=== PATIENT | male | born 1935 | race Caucasian/White ===

== ENCOUNTER 2018-08-28 18:00 | Observation (INO) ==
[2018-08-28] MEDS ORDERED: CALCIUM CHLORIDE 1 GM in NS 100 ML IV ONE (19:00)
[2018-08-28] MEDS ORDERED: GLUCAGON IV ONE (19:01)
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
[2018-08-28 19:28] LABS: BASO# 0.03 X1000 (0.0-0.2); BASO% 0.4 % (0.0-0.8); EOS% 2.9 % (0.0-10.0); HEMATOCRIT 39.8 % (42.0-52.0); HEMOGLOBIN 13.8 g/dL (14.0-18.0); IMM GRAN# 0.01 X1000 (0.0-0.04); IMM GRAN% 0.1 % (0.0-0.5); LYMPH# 1.89 X1000 (1.2-3.4); LYMPH% 27.1 % (20.5-51.1); MCH 30.9 PG (27-31); MCHC 34.7 g/dL (33-37); MCV 89.2 FL (81-99); MONO# 0.68 X1000 (0.11-0.59); MONO% 9.7 % (1.7-9.3); MPV 11.6 FL (7.4-10.4); NEUT# 4.17 X1000 (1.4-6.5); NEUT% 59.8 % (42.2-75.2); PLT 155 X1000 (130-400); RBC 4.46 XMIL (4.7-6.1); RDW 12.6 % (11.5-14.5); WBC 6.98 X1000 (4.8-10.8)
[2018-08-28] MEDS ORDERED: NS 100 ML ONE (19:33)
[2018-08-28 19:50] LABS: ALBUMIN 3.7 g/dL (3.5-5.0); CALCIUM 8.8 mg/dL (8.8-10.2); CREATININE 1.3 mg/dL (0.7-1.2); POTASSIUM 5.3 mmol/L (3.5-5.1); TOTAL BILIRUBIN 0.3 mg/dL (0.20-1.00); TOTAL PROTEIN 6.1 g/dL (6.3-8.3)
[2018-08-28] MEDS ORDERED: ZOFRAN IV ONE (20:38)
[2018-08-28] MEDS ORDERED: G.I. COCKTAIL PO ONE (21:06)
[2018-08-28] MEDS ORDERED: ZOFRAN IV PRN (21:37)
[2018-08-28] MEDS ORDERED: ATROPINE IV ONE (22:08)
[2018-08-28] MEDS ORDERED: ATROPINE ONE (22:09)
[2018-08-29] MEDS ORDERED: DOPAMINE 800 MG/D5W 800 MG/500 ML IV.SOLN IV SCH (01:30)
[2018-08-29] MEDS ORDERED: SODIUM CHLORIDE 0.9% INJ SCH (01:30)
[2018-08-29] MEDS: NS 1,000 ML IV SCH ×2 (03:03→18:14)
[2018-08-29] MEDS: PROTONIX IV SCH (03:17)
[2018-08-29] MEDS ORDERED: DOPAMINE 800 MG/D5W 800 MG/250 ML IV.SOLN IV SCH (04:00)
--- NOTE | 2018-08-29 05:41 | Diag Imaging Result Doc PS360 ---
EXAM: CHEST-PORTABLE HISTORY: chest pain TECHNIQUE: Portable chest, single view COMPARISON: 05/06/2018 FINDINGS: The lungs are well expanded. The heart is not enlarged. Sternal wires are present. The vessels are not distended. There are no infiltrates. No effusion identified. IMPRESSION: No acute abnormality. Electronically signed by Brandon Kwok 08/29/2018 5:38 AM
[2018-08-29] MEDS: TYLENOL PO PRN ×2 (06:13→21:49)
[2018-08-29] MEDS: ASPIRIN EC PO SCH (08:40)
[2018-08-29 08:46] LABS: AGAP 11; ALBUMIN 3.6 g/dL (3.5-5.0); ALKALINE PHOSPHATASE 80 U/L (32-122); BUN 25 mg/dL (8-22); CHLORIDE 101 mmol/L (98-107); COSMO 287; CREATININE 1.1 mg/dL (0.7-1.2); ESTIMATED GFR > 60; GLUCOSE 286 mg/dL (70-104); GOT 9 U/L (10-34); GPT 11 U/L (10-44); POTASSIUM 4.8 mmol/L (3.5-5.1); SODIUM 136 mmol/L (136-145); TCO2 25 mmol/L (25-35); TOTAL PROTEIN 5.9 g/dL (6.3-8.3)
--- NOTE | 2018-08-29 09:42 | HISTORY AND PHYSICAL ---
SUBJECTIVE: Mr. Burns is an 83-year-old who got admitted last night because of epigastric pain that he refers to be as heartburn. This was associated with one episode of vomiting. Upon presenting to the emergency department, the patient was evaluated, was given a GI cocktail, and his epigastric symptoms improved. However, in the ER, he was found to be bradycardic and it was decided that he needed to be observed overnight. This morning, he refers to feel a lot better. No chest pain. No heartburn. The daughter was at the bedside at the time of the encounter. OBJECTIVE: Vital Signs: Blood pressure is currently 125/63, pulse is 44 at this time, respirations are 15, temperature is 97.9 degrees, the patient was saturating about 94%. General Examination: Mr. Burns is an 83-year-old, male. He is in bed. He is not in any cardiopulmonary distress. HEENT: Mucosa is pink, slightly dry. Anicteric. Acyanotic. Neck: Supple. Chest: Good air entry bilateral. There were no crepitations. No rhonchi. Cardiovascular: Slightly bradycardic but no murmurs, no rubs, no gallops. Abdomen: Soft. Distended but nontender. Bowel sounds present. Extremities: No pedal edema. Distal pulses present. Musculoskeletal: There is an old sternotomy scar on the anterior chest wall. LABORATORY DATA: Chemistry this morning, sodium is 136, potassium is down to 4.8, chloride is 101, creatinine has normalized to 1.3. Troponins have been done 3 times. They are all below normal range. A chest x-ray yesterday showed no acute abnormality. EKG tracing, there was one EKG done yesterday at 1819 which showed junctional rhythm with a rate of 40. A repeat was done early this morning at 1:28. Continued to show junctional rhythm with a rate down to 32. Currently, patient's telemetry tracing is showing sinus bradycardia with a rate of about 44. The patient is completely asymptomatic. MEDICATIONS: Review of home medications indicated that the patient was on metoprolol 50 mg and losartan 25, and other medications. REVIEW OF PREVIOUS DATA: An echocardiogram was done in May of last year which showed an ejection fraction of 65 to 70 percent, no wall motion abnormality, and the valves seem to be unremarkable. A left heart catheterization was done also in May of last year which showed severe three-vessel coronary artery disease, severe stenosis of the left main coronary artery, the LAD, and the circumflex. The right coronary appears to be occluded. The patient at that time was recommended medical management. ASSESSMENT: 1. Epigastric discomfort on presentation which is presumed to be gastroesophageal reflux disease. This has significantly improved with the gastrointestinal cocktail and proton pump inhibitor. The patient's troponins have been 3 times negative. Electrocardiogram does not show any ST- segment or T-wave abnormality so myocardial infarction has been ruled out. This morning, Mr. Burns is clinically stable. We are going to continue with his home medications except for the blood pressure and the beta nan medication. 2. Asymptomatic bradycardia. Initially, this was junctional rhythm. Currently, the patient is in sinus rhythm with a rate of about 44. I am told that whenever he gets up, it goes up into the 50s. I think this is medication-induced, presumably the beta nan. This has been discontinued. We will observe the patient in the hospital. We will observe him until midday. If he continues to be asymptomatic, I think it will be okay to discharge him. 3. Hypotension on presentation, resolved. We think this is also medication-induced. Losartan has been withheld as well as beta nan has been withheld. 4. Clinical volume depletion. The patient continues to be slightly on the dry side. Creatinine has improved. We will continue with the gentle hydration and re-evaluate him later today. 5. History of severe coronary artery disease, status post coronary artery bypass graft. A recent left heart left heart catheterization still shows three vessel disease. The patient has been advised only medical management at this point from his previous hospitalization. Currently, he does not seem to have any ongoing acute coronary syndrome. 6. Diabetes mellitus. We will continue with insulin regimen for now. 7. Hearing impairment, noted. 8. Age-related cognitive decline versus early dementia. The patient has been advised to allow family members to be monitoring his current medications. The fear is that he might have taken maybe a little too much of his blood pressure or his beta nan, and that could have made his vitals this abnormal. The patient voiced understanding. PLAN: In general, I think Mr. Burns is doing okay. We are going to continue with the gentle hydration. We will discontinue the dopamine since his blood pressures have been fine. We will feed him this morning and this afternoon, encourage the staff to walk him around this afternoon. If he continues to be okay, we will be able to discharge him this afternoon. cc: Cole Ojeda MD
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
[2018-08-29] MEDS ORDERED: LIPITOR PO SCH (21:00)
[2018-08-30] MEDS: PROTONIX IV SCH (02:23)
[2018-08-30 06:55] LABS: BASO# 0.02 X1000 (0.0-0.2); BASO% 0.3 % (0.0-0.8); EOS% 3.2 % (0.0-10.0); HEMATOCRIT 39.8 % (42.0-52.0); HEMOGLOBIN 13.5 g/dL (14.0-18.0); IMM GRAN# 0.01 X1000 (0.0-0.04); IMM GRAN% 0.2 % (0.0-0.5); LYMPH# 1.21 X1000 (1.2-3.4); LYMPH% 19.3 % (20.5-51.1); MCH 30.4 PG (27-31); MCHC 33.9 g/dL (33-37); MCV 89.6 FL (81-99); MONO# 0.72 X1000 (0.11-0.59); MONO% 11.5 % (1.7-9.3); MPV 11.5 FL (7.4-10.4); NEUT# 4.11 X1000 (1.4-6.5); NEUT% 65.5 % (42.2-75.2); PLT 127 X1000 (130-400); RBC 4.44 XMIL (4.7-6.1); RDW 12.7 % (11.5-14.5); WBC 6.27 X1000 (4.8-10.8)
[2018-08-30 07:15] LABS: AGAP 10; BUN 20 mg/dL (8-22); CALCIUM 8.5 mg/dL (8.8-10.2); CHLORIDE 102 mmol/L (98-107); COSMO 283; ESTIMATED GFR > 60; GLUCOSE 210 mg/dL (70-104); POTASSIUM 4.4 mmol/L (3.5-5.1); SODIUM 137 mmol/L (136-145); TCO2 25 mmol/L (25-35)
[2018-08-30] MEDS: NS 1,000 ML IV SCH (07:40)
--- NOTE | 2018-08-30 08:43 | EKG Report ---
Test Performed on : 08/29/2018 01:28:41 AM Test Reason : drop in heart rate Blood Pressure : / mmHG Vent. Rate : 032 BPM Atrial Rate : 021 BPM P-R Int : 000 ms QRS Dur : 096 ms QT Int : 488 ms P-R-T Axes : 000 008 068 degrees QTc Int : 356 ms Junctional bradycardia. Cannot rule out Anterior infarct , age undetermined Abnormal ECG When compared with ECG of 28-AUG-2018 18:19, (Unconfirmed) Nonspecific T wave abnormality, worse in Lateral leads Unconfirmed Result
--- NOTE | 2018-08-30 09:17 | EKG Report ---
Test Performed on : 08/28/2018 6:19:29 PM Test Reason : ER Blood Pressure : / mmHG Vent. Rate : 040 BPM Atrial Rate : 045 BPM P-R Int : 000 ms QRS Dur : 090 ms QT Int : 462 ms P-R-T Axes : 000 010 067 degrees QTc Int : 376 ms Junctional bradycardia. Nonspecific ST and T wave abnormality Abnormal ECG When compared with ECG of 07-MAY-2018 15:26, Junctional rhythm. has replaced Sinus rhythm. T wave inversion no longer evident in Anterolateral leads QT has shortened Unconfirmed Result
[2018-08-30] MEDS: ASPIRIN EC PO SCH (09:23)
[2018-08-30 11:21] VITALS: BP 186/88
--- NOTE | 2018-08-30 15:54 | DISCHARGE SUMMARY ---
ADMISSION DATE: 08/28/2018 DISCHARGE DATE: 08/30/2018 ADMISSION DIAGNOSES: 1. Epigastric pain. 2. Asymptomatic bradycardia. 3. Hypotension. 4. Volume depletion. 5. Coronary artery disease. 6. Diabetes mellitus requiring insulin. 7. Hearing impairment. 8. Age related cognitive decline versus early dementia. DISCHARGE DIAGNOSES: 1. Epigastric discomfort, resolved. 2. Asymptomatic bradycardia, resolved. 3. Hypotension, resolved. 4. Clinical volume depletion, resolved. 5. History of coronary artery disease. 6. Diabetes mellitus requiring insulin. 7. Hearing impairment. 8. Age related cognitive decline versus early dementia. CONSULTATIONS: None. DIAGNOSTIC PROCEDURES AND FINDINGS: EKG 08/28/2018 with junctional bradycardia with nonspecific ST changes. Chest x-ray 08/29/2018 with no acute abnormality. HOSPITAL COURSE: Mr. Burns is an 83-year-old male with a history of CAD who presented to [facility] ER with three to four days of epigastric discomfort that he felt was more heartburn in nature. When he arrived to the ER his heart rate was noted to be in the 30s. His subsequent EKG revealed a junctional bradycardia that was felt to be overall asymptomatic. After discussing with the patient for quite some time, we learned that he has been taking his 's Cardizem twice a day because he felt that this was needed for epigastric pain or heartburn. There was clearly some confusion about what he should be taking and the effects of the medication that he was taking from his 's prescription. He was admitted to the ICU for close observation. Cardiac enzymes were done x4 sets and were all found to be negative. His heart rate returned to normal and is currently in the 70s and he has no pain at this time. We discussed with his and himself the importance of not taking medication not prescribed and that he should follow up with his PCP regarding any type of discomfort for proper management. His vital signs are currently stable and he is now ready for discharge home. DISCHARGE MEDICATIONS: Atorvastatin 80 mg at bedtime, Glucophage 500 mg p.o. b.i.d., aspirin 81 mg daily, Cozaar 25 mg daily, omeprazole 40 mg p.o. b.i.d. We have stopped his metoprolol XL 50 mg daily. DISCHARGE PHYSICAL EXAM: General: This is an elderly, somewhat disheveled and unkempt appearing 83-year-old male lying in a hospital bed in no acute distress. Neurologic: He is hard of hearing but he is overall awake and alert. He follows commands without focal deficits. HEENT: Head is atraumatic and normocephalic. Pupils are equal, round, and reactive to light. Mucus membranes pink and moist. Neck: Supple. Trachea is midline. There is no JVD. Chest: Clear to auscultation bilaterally. CV: Regular rate and rhythm. S1, S2 is noted. No murmur. GI: Soft. Nondistended. Nontender. Bowel sounds are active. Extremities: No edema. Pulses present. DISCHARGE LAB DATA: WBC 6.27, hemoglobin 13.5, hematocrit 39.8, platelet count 127. Sodium 137, potassium 4.4, chloride 102, CO2 25, anion gap 10, BUN 20, creatinine 1, glucose 210, calcium 8.5. Cardiac enzymes negative x4 sets. DISCHARGE DIET: Diabetic, heart healthy. DISCHARGE ACTIVITY: Resume activity as tolerated. DISPOSITION AND OTHER DISCHARGE INSTRUCTIONS: The patient has been discharged home to self care. He is to follow up with Dr. Proctor within the next one to two weeks and his playground director, Dr. Acevedo, within the next one to two weeks. We have asked him to stop his metoprolol and certainly not to take any Cardizem or any other prescription medications that are not prescribed to him. He and his both verbalized understanding. We have asked them to return to the ER or call 911 for any complaints or concerns. All questions answered. Discharge time greater than 35 minutes. Dictated by RAQUEL Pena for Jeovany Lopez MD cc: RAQUEL Pena MD John V. Irle, MD William D. Denney, MD
--- NOTE | 2018-08-31 10:09 | DISCHARGE SUMMARY ---
ADMISSION DATE: 08/28/2018 DISCHARGE DATE: 08/30/2018 DISCHARGE DIAGNOSIS: 1. Hypotension, resolved. 2. Bradycardia secondary to medication use, resolved. 3. Epigastric discomfort, improved. 4. Severe coronary artery disease status post coronary bypass grafting, stable. 5. Diabetes. CONSULTATIONS: None. PROCEDURES: None. BRIEF HOSPITAL COURSE: The patient is an 83-year-old male, who presented to the hospital bradycardic. He was essentially asymptomatic. After discussion with the family, it became evident that he was taking his 's Cardizem because he thought that it was for heartburn. Unfortunately, that is not for heartburn, and it dropped his heart rate into the 40s. He was admitted, placed in the ICU overnight. He had an uneventful hospital course. On discharge, he is awake, alert. He is in no distress. His heart rate in the 70s and 80s. DISPOSITION: The patient will be discharged home. DISCHARGE INSTRUCTIONS: He will not start taking his Toprol again until he follows up with his primary care. The staff did review this with his daughter and discussed with her that certainly should consider helping him with his medications. COORDINATION TIME: Greater than 30 minutes spent in total care. cc: Jeovany Lopez MD
== END 2018-08-30 11:34 | disposition home or self-care (01) ==
LOC: P.MEDSURG 18:00 → P.ED 18:00 → SUATTDRO 18:01 → P.ICU 08-29 01:48
PROVIDERS: ATTEND Family Medicine
CPT/HCPCS: 71010; 71045; 80048; 80053; 82550; 83880; 84443; 84484; 85025; 93005; 96365; 96375; 99285; A9270; C9113; J0461; J1265; J1610; J2405; J7030; S0164

== ENCOUNTER 2019-05-31 08:01 | Inpatient (IN) ==
[2019-05-31] MEDS ORDERED: NS 1,000 ML ONE (08:17)
[2019-05-31] MEDS ORDERED: ASPIRIN PO ONE (08:19)
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
[2019-05-31 08:46] LABS: BASO# 0.03 X1000 (0.0-0.2); BASO% 0.3 % (0.0-0.8); EOS# 0.14 X1000 (0.0-0.7); HEMOGLOBIN 15.5 g/dL (14.0-18.0); PLT 217 X1000 (130-400)
[2019-05-31] MEDS ORDERED: ASPIRIN ONE (08:49)
[2019-05-31 08:50] LABS: EOS% 1.6 % (0.0-10.0); HEMATOCRIT 46.4 % (42.0-52.0); LYMPH# 2.66 X1000 (1.2-3.4); LYMPH% 29.9 % (20.5-51.1); MCH 30.3 PG (27-31); MCHC 33.4 g/dL (33-37); MCV 90.8 FL (81-99); MONO# 0.24 X1000 (0.11-0.59); MONO% 2.7 % (1.7-9.3); MPV 11.5 FL (7.4-10.4); NEUT# 5.82 X1000 (1.4-6.5); NEUT% 65.5 % (42.2-75.2); RBC 5.11 XMIL (4.7-6.1); RDW 13.3 % (11.5-14.5); WBC 8.89 X1000 (4.8-10.8)
--- NOTE | 2019-05-31 08:50 | EKG Report ---
Test Performed on : 05/31/2019 08:22:09 AM Test Reason : CP Blood Pressure : / mmHG Vent. Rate : 126 BPM Atrial Rate : 126 BPM P-R Int : 192 ms QRS Dur : 078 ms QT Int : 286 ms P-R-T Axes : 048 009 052 degrees QTc Int : 414 ms Sinus tachycardia. Possible Left atrial enlargement Nonspecific ST abnormality Abnormal ECG No previous ECGs available Unconfirmed Result
[2019-05-31 08:55] LABS: INR 1.04; PROTIME 13.7 Seconds (11.0-16.0)
[2019-05-31 08:56] LABS: PTT 23.7 Seconds (22.3-41.8)
[2019-05-31 09:10] LABS: ALB/GLOB RATIO 1.9; ALBUMIN 4.3 g/dL (3.5-5.0); CALCIUM 9.4 mg/dL (8.8-10.2); CREATININE 1.4 mg/dL (0.7-1.2); POTASSIUM 4.5 mmol/L (3.5-5.1); TOTAL BILIRUBIN 0.49 mg/dL (0.20-1.00); TOTAL PROTEIN 6.6 g/dL (6.3-8.3)
--- NOTE | 2019-05-31 09:20 | Diag Imaging Result Doc PS360 ---
EXAM: CHEST-1 VIEW HISTORY: POSSIBLE SEPSIS TECHNIQUE: Single view COMPARISON: 08/29/2018 FINDINGS: The lungs are well expanded. There are infiltrates in the mid and lower right lung on the current exam. No cardiomegaly. The sternal wires and surgical clips. No pleural effusions identified. IMPRESSION: Right-sided pneumonia. Follow-up PA and lateral recommended. Electronically signed by Brandon Kwok 05/31/2019 9:17 AM
[2019-05-31] MEDS ORDERED: NS 500 ML IV ONE (09:31)
[2019-05-31] MEDS ORDERED: NS 1,000 ML IV ONE (09:31)
[2019-05-31] MEDS ORDERED: MAXIPIME 2 GM in NS 100 ML IV ONE (09:31)
[2019-05-31] MEDS ORDERED: VANCOMYCIN 1 GM/NS 1 GM/250 ML IVPB IV ONE (09:31)
[2019-05-31] MEDS ORDERED: VANCOMYCIN IV PER PHARMACY MISC SCH (10:00)
[2019-05-31] MEDS: ASPIRIN EC PO SCH (10:00)
[2019-05-31] MEDS: XOPENEX NEB INH SCH ×3 (10:46→22:10)
[2019-05-31] MEDS: ATROVENT NEB INH SCH ×3 (10:47→22:10)
[2019-05-31] MEDS: HUMULIN R SUBQ SCH ×3 (11:18→20:39)
[2019-05-31] MEDS ORDERED: VANCOMYCIN 1.8 GM in NS 250 ML IV ONE (12:00)
[2019-05-31] MEDS: FLOMAX PO SCH ×2 (12:05→22:08)
--- NOTE | 2019-05-31 12:12 | HISTORY AND PHYSICAL ---
Addendum to history and physical dictated by Nurse Practitioner and I agree with most components of history, physical, assessment and plan. BRIEF SUMMARY: In brief, Mr. Burns is an 83-year-old man with past medical history of essential hypertension, mee-eeirkbh-ozqpyammj diabetes mellitus, myocardial infarction requiring CABG in year 2009, history of cholecystectomy. No history of COPD, who comes in with chief complaints of shortness of breath, chills, feeling cold and 2 to 3 episodes of vomiting since about 8 hours prior to current presentation. The patient was in his usual state of health yesterday, and he uses a walker to walk; however, suddenly, this morning at about 3 a.m., he started feeling really cold and was chilly. He also had episodes of vomiting so he decided to come to the hospital. In the hospital, he was found to have sepsis and acute hypoxic respiratory failure with lactic acidosis, so the hospitalist team was consulted for further management. His temperature was 99.9 degrees, pulse was 117. He was saturating 92% on room air. At the time of my evaluation he is complaining of dry cough, some chest discomfort which has resolved but initially was going across the chest. His family members are currently at bedside. VITAL SIGNS: Temperature of 99.9 degrees, pulse 102, respiratory rate 20, blood pressure 150/77. He is saturating 99% on 2 L nasal cannula. PHYSICAL EXAMINATION: GENERAL: He is not in acute distress except tachypneic. Oral cavity is dry. RESPIRATORY: He has significantly decreased air entry with inspiratory crackles in the right inframammary and infrascapular region. Adequate air entry without wheeze, rhonchi or crackles on left lung. CARDIOVASCULAR: S1, S2 normal. Tachycardic. No murmur, rub, or gallop. ABDOMEN: Soft. Mild tenderness in right lower quadrant. Hypoactive bowel sounds. EXTREMITIES: He does not have any lower extremity edema. He has adequate dorsalis pedis pulses bilaterally. 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 LABORATORY DATA: Suggestive of no leukocytosis. Normal hemoglobin, normal platelet count, hyponatremia, hypochloremia, chronic kidney disease stage 3, lactic acidosis. Microbiology: Blood cultures have been collected. IMAGING: Chest x-ray suggest a multifocal pneumonia affecting the right lung. ASSESSMENT AND PLAN: 1. Sepsis and acute hypoxic respiratory failure due to multifocal right lung pneumonia. I will follow up with urine antigens, blood culture results, sputum culture and start him on broad- spectrum antibiotics, intravenous vancomycin and cefepime. He was given 1.5 L of IV fluids according to nursing report. I will keep him on intravenous fluids, keep him on oxygen to maintain saturation more than 92%, and follow up with serial lactate. 2. Vomiting. He according to reports takes multiple pain medications for arthritis including Goody Powder, an xgzi-wyb-iqrpuxr medication which can cause acute gastritis. He also has right upper quadrant abdominal pain with prior history of cholecystectomy and history of constipation. I will get x-ray of the abdomen to rule out constipation. I will hold NSAID medication and start him on his home proton pump inhibitors orally b.i.d. 3. History of coronary artery disease with myocardial infarction and CABG in year around 2009. His 1st troponin was negative. EKG only had sinus tachycardia. He was given aspirin 325 mg. I will keep him on his home aspirin and atorvastatin and follow-up repeat EKG . 4. History of fia-rcmkocg-bsdavlgim diabetes mellitus with hyperglycemia on presentation. I will keep him on sliding scale insulin. I will resume his home glimepiride and follow up hemoglobin A1c next. DISPOSITION: I will continue to monitor patient inside the telemetry unit. Plan of care extensively discussed with the patient and his at bedside and son. All of their questions have been answered. cc: Woody Paige MD
[2019-05-31] MEDS: NS 1,000 ML IV SCH ×2 (12:13→20:39)
[2019-05-31] MEDS: CARAFATE LIQUID PO SCH ×3 (12:13→20:37)
--- NOTE | 2019-05-31 12:59 | Diag Imaging Result Doc PS360 ---
EXAM: ABDOMEN FLAT/UPRIGHT 05/31/2019 HISTORY: abdominal pain. Rule out constipation TECHNIQUE: Flat and upright abdomen COMMENT: There is some stool in the colon. There is no evidence of bowel dilatation organomegaly or mass. There are numerous phleboliths in the pelvis. There are degenerative disc changes in the lumbar spine particularly at the L3-4 and L4-5 levels. IMPRESSION: The possibility of a mild degree of constipation particularly in the right colon cannot be excluded. Otherwise the appearance of the abdomen is nonspecific. Electronically signed by Robel Cano 05/31/2019 12:56 PM
--- NOTE | 2019-05-31 13:04 | EKG Report ---
Test Performed on : 05/31/2019 12:54:59 PM Test Reason : Follow up EKG Blood Pressure : / mmHG Vent. Rate : 098 BPM Atrial Rate : 098 BPM P-R Int : 216 ms QRS Dur : 094 ms QT Int : 348 ms P-R-T Axes : 033 -07 085 degrees QTc Int : 444 ms Sinus rhythm. with 1st degree AV block. T wave abnormality, consider lateral ischemia Abnormal ECG When compared with ECG of 31-MAY-2019 08:22, (Unconfirmed) T wave inversion now evident in Lateral leads Confirmed by Carlos SOSA, [place] ([id number]) on 05/31/2019 4:57:12 PM
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
[2019-05-31] MEDS: AMARYL PO SCH (20:38)
[2019-05-31] MEDS: LIPITOR PO SCH (20:38)
[2019-05-31] MEDS: PROTONIX IV SCH (20:38)
[2019-05-31] MEDS: MAXIPIME 1 GM in NS 50 ML IV SCH ×2 (20:38→22:08)
[2019-05-31] MEDS: MUCINEX PO SCH (20:38)
[2019-05-31] MEDS: TYLENOL PO PRN (20:38)
[2019-05-31] MEDS ORDERED: PRILOSEC PO SCH (21:00)
[2019-05-31 21:01] LABS: URINE SOURCE CATH
[2019-05-31 21:05] LABS: BILIRUBIN URINE NEGATIVE (NEGATIVE); BLOOD URINE NEGATIVE (NEGATIVE); COLOR YELLOW; GLUCOSE URINE 500 mg/dL (NEGATIVE); KETONE URINE 20 mg/dL (NEGATIVE); LEUKOCYTES URINE NEGATIVE (NEGATIVE); NITRITE URINE NEGATIVE (NEGATIVE); PROTEIN URINE NEGATIVE (NEGATIVE); SP GRAVITY URINE 1.014; TURBIDITY URINE CLEAR (CLEAR); UROBILINOGEN URINE NORMAL (NORMAL)
[2019-05-31 21:06] LABS: UR EPITHELIAL CELLS <10 /HPF (<10); URINE BACTERIA NEGATIVE /HPF; URINE RBC <10 /HPF (<10); URINE WBC <10 /HPF (<10)
[2019-06-01] MEDS: CARAFATE LIQUID PO SCH ×4 (02:01→19:55)
[2019-06-01] MEDS: ATROVENT NEB INH SCH ×4 (03:49→21:12)
[2019-06-01] MEDS: XOPENEX NEB INH SCH ×4 (03:49→21:12)
[2019-06-01 05:58] LABS: BASO# 0.03 X1000 (0.0-0.2); BASO% 0.3 % (0.0-0.8); EOS# 0.07 X1000 (0.0-0.7); EOS% 0.6 % (0.0-10.0); HEMATOCRIT 37.9 % (42.0-52.0); HEMOGLOBIN 12.3 g/dL (14.0-18.0); IMM GRAN# 0.03 X1000 (0.0-0.04); IMM GRAN% 0.3 % (0.0-0.5); LYMPH# 1.49 X1000 (1.2-3.4); LYMPH% 12.6 % (20.5-51.1); MCHC 32.5 g/dL (33-37); MCV 92.4 FL (81-99); MONO# 0.63 X1000 (0.11-0.59); MONO% 5.3 % (1.7-9.3); MPV 11.1 FL (7.4-10.4); NEUT# 9.53 X1000 (1.4-6.5); NEUT% 80.9 % (42.2-75.2); PLT 131 X1000 (130-400); RDW 13.4 % (11.5-14.5); WBC 11.78 X1000 (4.8-10.8)
[2019-06-01 06:16] LABS: ALB/GLOB RATIO 1.2; ALBUMIN 2.9 g/dL (3.5-5.0); CREATININE 1.2 mg/dL (0.7-1.2); POTASSIUM 4.2 mmol/L (3.5-5.1); TOTAL BILIRUBIN 0.55 mg/dL (0.20-1.00); TOTAL PROTEIN 5.4 g/dL (6.3-8.3)
[2019-06-01] MEDS: HUMULIN R SUBQ SCH ×4 (06:39→20:59)
[2019-06-01] MEDS: FLOMAX PO SCH ×2 (08:16→20:04)
[2019-06-01] MEDS: ASPIRIN EC PO SCH (08:17)
[2019-06-01] MEDS: MUCINEX PO SCH ×2 (08:17→20:04)
[2019-06-01] MEDS: PROTONIX IV SCH ×2 (08:17→20:04)
[2019-06-01] MEDS: AMARYL PO SCH ×2 (08:17→20:04)
[2019-06-01] MEDS: SODIUM CHLORIDE 0.9% INJ SCH ×2 (08:17→20:04)
[2019-06-01] MEDS ORDERED: COZAAR PO SCH (09:00)
--- NOTE | 2019-06-01 09:34 | Diag Imaging Result Doc PS360 ---
EXAM: CHEST-2 VIEWS HISTORY: Pneumonia TECHNIQUE: Two views COMPARISON: 03/31/2019 FINDINGS: Right-sided infiltrates are less prominent on the current exam. The lungs are well expanded. Sternal wires are present. Heart is borderline mildly prominent. Tiny pleural effusions. IMPRESSION: Interval improvement in the right-sided pneumonia Electronically signed by Brandon Kwok 06/01/2019 9:32 AM
[2019-06-01] MEDS: MAXIPIME 1 GM in NS 50 ML IV SCH ×2 (09:48→20:59)
[2019-06-01] MEDS: MIRALAX PO SCH ×3 (09:55→20:05)
[2019-06-01] MEDS: COZAAR PO SCH (09:55)
[2019-06-01] MEDS: DULCOLAX PR SCH ×3 (09:55→20:04)
--- NOTE | 2019-06-01 10:49 | PROGRESS NOTE ---
DATE: 06/01/2019 INTERVAL HISTORY: No acute events overnight Mr. Burns subjectively is feeling better. His lactic acidosis was resolving yesterday after intravenous fluid resuscitation. cc: Woody Paige MD
--- NOTE | 2019-06-01 11:23 | PROGRESS NOTE ---
DATE: 06/01/2019 SUBJECTIVE: Mr. Burns is feeling better. He denies any chest pain, shortness of breath or cough. He denies any nausea or vomiting. His tachycardia has resolved. His hypertension is well controlled. VITAL SIGNS: Currently temperature 98.3 degrees, pulse 88, respiratory rate 14, blood pressure 150/70, saturating 98% on room air. PHYSICAL EXAMINATION: General: Not in acute distress. HEENT: Oral cavity is moist. Lungs: Air entry bilaterally equal. No wheeze, rhonchi. He had bronchial breath sound with inspiratory crackles on the right infrascapular region. Mild crackles on left infrascapular region S1, S2 normal. No murmur or gallop. Abdomen: Soft, distention, nontender, tympanic to percussion. Active bowel sounds. Extremities: He does not have lower extremity edema. He has a right- sided 3 finger amputation due to prior injury. LABS: Mild leukocytosis, normocytic anemia. He does have improving in creatinine. His hyperglycemia is currently adequately controlled. MICROBIOLOGY: Microbiology blood cultures are in lab. IMAGING: Chest x-ray suggests were improving infiltrate. Abdominal x-ray had constipation in the right colon. ASSESSMENT AND PLAN: 1. Sepsis and acute hypoxic respiratory failure due to multifocal right lung pneumonia. Follow up urine antigen, blood culture results. He is not able to make sputum. Continue intravenous vancomycin and intravenous cefepime. Continue oxygen to maintain saturation more than 92%. 2. Epigastric pain, vomiting. This could be in the setting of acute gastritis related to nonsteroidal antiinflammatory drugs. I have stopped all of his nonsteroidal antiinflammatory drugs that he was taking for arthritic pain. He previously had cholecystectomy. I will continue pantoprazole and sucralfate. He would likely need outpatient Gastrology followup. Stool H pylori antigen has been ordered. 3. History of coronary artery disease status post coronary artery bypass grafting around 2009. Continue home aspirin, statin. His electrocardiogram had T inversions in the lateral leads. However, his troponins were unremarkable. He should have outpatient follow up with cardiology. 4. History of fgp-vejrpwr-dsebxveop diabetes mellitus with hemoglobin A1c of 10 and hyperglycemia on presentation. Continue sliding scale insulin. His home glimepiride. DISPOSITION: I will continue to monitor patient inside the PVC unit. Plan of care discussed with him. His questions have been satisfactorily answered. cc: Woody Paige MD MTDD
[2019-06-01] MEDS: FLONASE NAS SCH ×2 (16:53→20:04)
[2019-06-01 17:23] LABS: URINE SOURCE CLEAN CATCH
[2019-06-01 17:35] LABS: BILIRUBIN URINE NEGATIVE (NEGATIVE); BLOOD URINE NEGATIVE (NEGATIVE); COLOR STRAW; GLUCOSE URINE 1000 mg/dL (NEGATIVE); KETONE URINE NEGATIVE (NEGATIVE); LEUKOCYTES URINE NEGATIVE (NEGATIVE); NITRITE URINE NEGATIVE (NEGATIVE); PROTEIN URINE NEGATIVE (NEGATIVE); SP GRAVITY URINE 1.005; TURBIDITY URINE CLEAR (CLEAR); UROBILINOGEN URINE NORMAL (NORMAL)
[2019-06-01 17:37] LABS: UR EPITHELIAL CELLS <10 /HPF (<10); URINE BACTERIA NEGATIVE /HPF; URINE RBC <10 /HPF (<10); URINE WBC <10 /HPF (<10)
[2019-06-01] MEDS: PYRIDIUM PO PRN (18:01)
[2019-06-01] MEDS ORDERED: FLEET MINERAL OIL ENEMA PR ONE (18:27)
[2019-06-01] MEDS: MELATONIN PO SCH (20:03)
[2019-06-01] MEDS: LIPITOR PO SCH (20:05)
[2019-06-01] MEDS: TYLENOL PO PRN (20:14)
[2019-06-01] MEDS: VANCOMYCIN 1,450 MG in NS 250 ML IV SCH (23:07)
[2019-06-02] MEDS ORDERED: VANCOMYCIN 1.4 GM in NS 250 ML IV SCH ×2
[2019-06-02] MEDS: XOPENEX NEB INH SCH ×4 (03:20→22:39)
[2019-06-02] MEDS: ATROVENT NEB INH SCH ×4 (03:20→22:39)
[2019-06-02 06:10] LABS: BASO# 0.02 X1000 (0.0-0.2); BASO% 0.3 % (0.0-0.8); EOS# 0.15 X1000 (0.0-0.7); EOS% 1.9 % (0.0-10.0); HEMATOCRIT 37.2 % (42.0-52.0); HEMOGLOBIN 12.3 g/dL (14.0-18.0); IMM GRAN# 0.02 X1000 (0.0-0.04); IMM GRAN% 0.3 % (0.0-0.5); LYMPH# 0.83 X1000 (1.2-3.4); LYMPH% 10.5 % (20.5-51.1); MCH 30.2 PG (27-31); MCHC 33.1 g/dL (33-37); MCV 91.4 FL (81-99); MONO# 0.49 X1000 (0.11-0.59); MONO% 6.2 % (1.7-9.3); MPV 11.2 FL (7.4-10.4); NEUT# 6.42 X1000 (1.4-6.5); NEUT% 80.8 % (42.2-75.2); PLT 142 X1000 (130-400); RBC 4.07 XMIL (4.7-6.1); RDW 13.3 % (11.5-14.5); WBC 7.93 X1000 (4.8-10.8)
[2019-06-02 06:32] LABS: AGAP 13; BUN 14 mg/dL (8-22); CALCIUM 8.7 mg/dL (8.8-10.2); CHLORIDE 101 mmol/L (98-107); COSMO 278; CREATININE 1.1 mg/dL (0.7-1.2); ESTIMATED GFR > 60; GLUCOSE 198 mg/dL (70-104); MAGNESIUM 1.7 mg/dL (1.5-2.7); POTASSIUM 3.8 mmol/L (3.5-5.1); SODIUM 136 mmol/L (136-145); TCO2 22 mmol/L (25-35)
[2019-06-02] MEDS: CARAFATE LIQUID PO SCH ×4 (07:01→20:20)
[2019-06-02] MEDS: HUMULIN R SUBQ SCH ×4 (07:02→22:04)
[2019-06-02] MEDS: ASPIRIN EC PO SCH (08:01)
[2019-06-02] MEDS: MUCINEX PO SCH ×2 (08:01→20:17)
[2019-06-02] MEDS: DULCOLAX PR SCH (08:01)
[2019-06-02] MEDS: COZAAR PO SCH (08:01)
[2019-06-02] MEDS: MIRALAX PO SCH ×2 (08:02→20:18)
[2019-06-02] MEDS: FLOMAX PO SCH ×2 (08:02→20:18)
[2019-06-02] MEDS: FLONASE NAS SCH ×2 (08:02→20:23)
[2019-06-02] MEDS: AMARYL PO SCH ×3 (08:02→22:03)
[2019-06-02] MEDS: SODIUM CHLORIDE 0.9% INJ SCH (08:02)
[2019-06-02] MEDS: PROTONIX IV SCH (08:02)
[2019-06-02] MEDS: MAXIPIME 1 GM in NS 50 ML IV SCH ×2 (09:17→22:04)
[2019-06-02] MEDS: PYRIDIUM PO PRN (09:19)
[2019-06-02] MEDS ORDERED: XYLOCAINE 2% JELLY TOP PRN (11:30)
[2019-06-02] MEDS: PROSCAR PO SCH (11:44)
--- NOTE | 2019-06-02 11:54 | PROGRESS NOTE ---
DATE: 06/02/2019 INTERVAL HISTORY: Yesterday, he started complaining of pain at the time of urination, and he also was complaining of some abdominal pain. He said that he wanted to pass urine, but he was not able to. I had ordered some phenazopyridine or Pyridium to help with his urinary pain, but he could not pass urine. He was also ordered some enema to help him have a bowel movement. However, he developed urinary retention overnight, and was noted to have 800 mL of urine retention, so a Ralph catheter was inserted. In the morning time, he says he is feeling much better after placement of urine catheter. We discussed about potential risk versus benefits of urine catheter. We discussed about benign prostatic hypertrophy. We also discussed about giving him a voiding trial and possible Urology consultation. We also discussed about improving pneumonia. OBJECTIVE: Current Vital Signs: Temperature 96.5 degrees, pulse 71, respiratory rate 16, blood pressure 180/80, saturating 98% on 2 L nasal cannula. General: He is not in acute distress. HEENT: Oral cavity is moist. Lungs: Air entry bilaterally equal. No wheeze, rhonchi, or crackles. Cardiovascular: S1, S2 normal. No murmur, rub, or gallop. Abdomen: Distended, soft, nontender. Active bowel sounds. Extremities: No lower extremity edema. 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 Neurologic: He is alert and oriented x3. He does have hearing impairment. Input and output suggests that he had 2 bowel movements so far. LABORATORY DATA: Normal WBC, stable hemoglobin, and normal platelet count. His electrolytes and kidney function are normal. His blood glucose is well controlled. MICROBIOLOGY: No new data. IMAGING: No new imaging. ASSESSMENT AND PLAN: 1. Sepsis and acute hypoxic respiratory failure due to multifocal right lung pneumonia. His urine antigens are pending. Blood cultures are negative. He is not able to make sputum. Continue intravenous vancomycin and cefepime, and my plan is to change it to oral Levaquin at the time of discharge. I discussed with the nurse about weaning him off oxygen. 2. Epigastric pain, vomiting on presentation, likely in the setting of acute gastritis related to nonsteroidal anti-inflammatory drugs use. Continue to hold nonsteroidal anti-inflammatory drugs. Continue proton pump inhibitors twice daily with sucralfate, and he would need outpatient Gastroenterology followup. His stool Helicobacter pylori antigen was not collected. 3. Urinary pain. He does have history of benign prostatic hypertrophy and had urinary retention, requiring Ralph catheter on 06/01/2019. I will give him a voiding trial, and also start him on finasteride. Continue Phenazopyridine for symptoms. He may need Urology followup eventually. 4. History of coronary artery disease, status post coronary artery bypass graft around 2009. Continue home aspirin, statin. His troponins were unremarkable. 5. History of noninsulin-dependent diabetes mellitus with hemoglobin A1c of 10, and hyperglycemia. Continue sliding scale insulin and home glimepiride. 6. Disposition. If he continues to do well and does not have any urinary or rectal symptoms, it would be reasonable to discharge him today. However, the patient wants to remain inside the hospital for another day to make sure these symptoms do not recur. Plan of care discussed with the nursing team and the patient. All of their questions have been answered. cc: Woody Paige MD MTDD
[2019-06-02] MEDS ORDERED: TORADOL IV ONE (13:50)
[2019-06-02] MEDS: PRILOSEC PO SCH (20:18)
[2019-06-02] MEDS: LIPITOR PO SCH (20:18)
[2019-06-02] MEDS: MELATONIN PO SCH (20:20)
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
[2019-06-03] MEDS: DULCOLAX PR SCH ×2 (00:38→08:56)
[2019-06-03] MEDS: ATROVENT NEB INH SCH ×3 (03:26→15:40)
[2019-06-03] MEDS: XOPENEX NEB INH SCH ×3 (03:26→15:40)
[2019-06-03 06:05] LABS: BASO# 0.02 X1000 (0.0-0.2); BASO% 0.3 % (0.0-0.8); EOS# 0.27 X1000 (0.0-0.7); EOS% 3.5 % (0.0-10.0); HEMATOCRIT 35.4 % (42.0-52.0); HEMOGLOBIN 11.8 g/dL (14.0-18.0); LYMPH# 0.96 X1000 (1.2-3.4); LYMPH% 12.6 % (20.5-51.1); MCH 30.3 PG (27-31); MCHC 33.3 g/dL (33-37); MCV 90.8 FL (81-99); MONO# 0.56 X1000 (0.11-0.59); MONO% 7.3 % (1.7-9.3); MPV 11.2 FL (7.4-10.4); NEUT# 5.83 X1000 (1.4-6.5); NEUT% 76.3 % (42.2-75.2); PLT 138 X1000 (130-400); RDW 13.1 % (11.5-14.5); WBC 7.64 X1000 (4.8-10.8)
[2019-06-03] MEDS: PRILOSEC PO SCH (06:39)
[2019-06-03] MEDS: HUMULIN R SUBQ SCH ×3 (06:40→16:31)
[2019-06-03] MEDS: CARAFATE LIQUID PO SCH ×3 (06:40→16:31)
[2019-06-03] MEDS: MUCINEX PO SCH ×2 (07:42→08:58)
[2019-06-03] MEDS: FLOMAX PO SCH ×2 (07:44→08:57)
[2019-06-03] MEDS: AMARYL PO SCH ×2 (07:44→08:55)
[2019-06-03] MEDS: COZAAR PO SCH ×2 (07:44→08:56)
[2019-06-03] MEDS: PROSCAR PO SCH ×2 (07:45→08:58)
[2019-06-03] MEDS: ASPIRIN EC PO SCH ×2 (07:45→08:55)
[2019-06-03] MEDS: TYLENOL PO PRN (07:45)
[2019-06-03] MEDS: FLONASE NAS SCH ×2 (07:47→08:57)
[2019-06-03] MEDS: MIRALAX PO SCH (08:58)
[2019-06-03] MEDS: MAXIPIME 1 GM in NS 50 ML IV SCH (09:19)
[2019-06-03] MEDS: VANCOMYCIN 1,450 MG in NS 250 ML IV SCH (11:37)
[2019-06-03 11:57] VITALS: BP 173/68
--- NOTE | 2019-06-03 23:00 | DISCHARGE SUMMARY ---
ADMISSION DATE: 05/31/2019 DISCHARGE DATE: 06/03/2019 DISCHARGE DISPOSITION: Home with home care for Ralph catheter care. DISCHARGE CONDITION: Hemodynamically stable. He is denying any chest pain, shortness of breath or cough. He is breathing well on room air. We discussed about completing antibiotics, following up with outpatient chest x-ray after seeing regular physician, discussing with regular physician about increasing diabetes medication, following up with Dr. Cook for benign prostatic hypertrophy management, following up with GI doctor for management of GERD. DISCHARGE DIAGNOSES: 1. Sepsis and acute hypoxic respiratory failure. 2. Multifocal right lung pneumonia. 3. Epigastric pain, vomiting in the setting of acute gastritis related to NSAID use. 4. Urinary pain related to benign prostatic hypertrophy. 5. Acute urinary retention related to benign prostatic hypertrophy. 6. Uncontrolled diabetes mellitus type 2 with hyperglycemia. OTHER DIAGNOSES: 1. History of essential hypertension. 2. History of hyperlipidemia. 3. History of noninsulin-dependent diabetes mellitus type 2. 4. History of chronic gastroesophageal reflux disease. 5. History of severe osteoarthritis and pain. 6. History of coronary artery disease and NSTEMI in year 2009, status post CABG. 7. History of hearing impairment. DISCHARGE MEDICATIONS: Atorvastatin 40 mg at nighttime, tamsulosin 0.4 mg b.i.d., glimepiride 2 mg b.i.d., metformin 1000 mg b.i.d. with meals, aspirin 81 mg daily, losartan 25 mg daily, fluticasone nasal spray 1 spray nasally inhaled b.i.d., Levaquin 750 mg daily for 5 tablets, omeprazole 40 mg b.i.d., finasteride 5 mg daily, 30 tablets have been prescribed. VITALS: At the time of discharge, temperature of 97.6 degrees, pulse 82, respiratory 18, blood pressure 170/60, saturating 93% on room air. PHYSICAL EXAMINATION: General: Not in acute distress. HEENT: Oral cavity is moist. Chest: Air entry bilaterally equal. No wheeze, rhonchi or crackles. Cardiovascular: Regular rate and rhythm. No murmur, rub, or gallop. Abdomen: Distended, obese, nontender. Active bowel sounds. Extremities: No lower extremity edema. Genitourinary: He has urine catheter. Neurologic: He is alert and oriented x3. He has hearing impairment. His and son are at bedside. LABS: At the time of discharge, WBC 7000, hemoglobin 11.8, platelet 138,000. Blood glucose 231. BUN 14, creatinine 1.1. Microbiology: During hospital admission blood culture did not have any growth. IMAGING: During hospital admission, chest x-ray on presentation had right-sided multifocal pneumonia. Abdomen x-ray on presentation had constipation in the right colon. Follow up chest x- ray had interval improvement in right-sided pneumonia. Electrocardiogram on presentation has sinus tachycardia, possible left atrial enlargement, nonspecific ST abnormality. HOSPITAL COURSE SUMMARY: Mr. Burns is an 83-year-old man with prior history of essential hypertension, noninsulin-dependent diabetes mellitus, myocardial infarction requiring CABG in 2009, who comes in with chief complaints of shortness of breath, chills, feeling cold and about 2 to 3 episodes of vomiting since about 8 hours prior to current presentation. In the hospital, he was found to have sepsis and acute hypoxic respiratory failure with lactic acidosis, so the hospitalist team was consulted for management. On arrival, his temperature was 99.9 degrees, pulse was 117 and he was saturating 92% on room air. He was admitted and the chest x-ray suggested multifocal right lung pneumonia. He was started on broad-spectrum intravenous antibiotics. With intravenous antibiotics, his clinical condition improved and after 48 to 72 hours of intravenous antibiotics he was breathing well on room air and did not have any episodes of fevers, chills and his cough was significantly improved, so it was decided to discharge him on oral antibiotics. While inside the hospital, he frequently complained of burning and pain around and at the time of urination and he had acute urinary retention. He previously had history of benign prostatic hypertrophy and was receiving tamsulosin 0.4 mg b.i.d., finasteride was added and urine catheter was inserted. He had failed his voiding trials and so urine catheter had to be put back and Urology was consulted. He was advised to keep the Ralph catheter in. Continue tamsulosin, finasteride and have urology outpatient follow-up within 1 week, at which time, removing the Ralph catheter versus transurethral resection of prostate was going to be decided. The patient was provided follow up with Dr. Cook. He also had uncontrolled diabetes mellitus with hyperglycemia and required long- acting and sliding scale insulin. At the time of discharge, he was resumed on his oral hypoglycemic agent, was advised to have follow up with his regular doctor to have a detailed discussion about it. He also had severe gastric acid reflux and he was advised to have follow up with outpatient GI after his pneumonia resolved to have further discussion. More than 30 minutes of time was spent discussing the patient plan of care was extensively discussed with the patient, the patient's son at bedside and . All of their questions were satisfactorily answered. cc: Woody Paige MD MTDD
== END 2019-06-03 17:20 | disposition home health service (06) | DRG 871 ==
LOC: ED 08:01 → EDIPHOLD 10:02 → 2N 10:25
PROVIDERS: ATTEND Internal Medicine